=== PATIENT | female | born 2000 | race Caucasian/White ===

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

== ENCOUNTER → 2019-02-23 | Outpatient (CLI) | payer MEDICAID ==
[2019-02-23 15:05] LABS: CHLAM PCR DETECTED (NOT DETECT); GON PCR DETECTED (NOT DETECT)
== END ==
LOC: LAB 13:02
PROVIDERS: ATTEND Nurse Practitioner Acute Care
DX: N98.8 Other complications associated with artificial fertilization (principal)
CPT/HCPCS: 87491; 87591

== ENCOUNTER 2019-03-04 02:12 | Emergency (ER) | payer MEDICAID ==
--- NOTE | 2019-03-04 02:54 | RADIOLOGY REPORT (SQ) ---
EXAM DESCRIPTION: XR KNEE 1-2 VIEWS COMPLETED DATE/TME: 03/04/2019 00:00 CLINICAL HISTORY: 18 years, Female, jumped fence and twisted knee COMPARISON: 03/21/2018 right knee NUMBER OF VIEWS: 2 TECHNIQUE: 2 view right knee LIMITATIONS: None. FINDINGS: Negative for fracture or dislocation. Soft tissues are unremarkable IMPRESSION: Negative exam copyright 2010 [employer]- All Rights Reserved
--- NOTE | 2019-03-04 05:42 | ER Document Report ---
ED Extremity Problem, Lower - General Chief Complaint: Knee Injury Stated Complaint: KNEE PAIN Time Seen by Provider: 03/04/19 05:34 Primary Care Provider: KENN GARCIA NP [Primary Care Provider] - Follow up as needed TRAVEL OUTSIDE OF THE [place] IN LAST 30 DAYS: No - HPI Notes: Patient is a 18-year-old female that presents to the emergency department for chief complaint of right knee pain. Patient states earlier this evening she was running and trying to jump a fence and twisted her right knee. She states she rolled her ankle and the knee twisted. She denied landing directly on her leg. She denied falling completely to the ground as well as head injury or loss of consciousness. She states that she has a pain on the lateral aspect of her right knee that is worse with movement. She denies any joint laxity. She denies any numbness or weakness. She states the pain is mild. She has not taken any medication for pain. Past Medical History: Negative Past Surgical History: Negative Social History: Denies drugs alcohol and tobacco Family History: Reviewed and noncontributory for presenting illness Allergies: Reviewed, see documented allergy list. REVIEW OF SYSTEMS: CONSTITUTIONAL : No fever No chills No diaphoresis No recent illness EENT: No vision changes No congestion No sore throat CARDIOVASCULAR: No chest pain No palpitations RESPIRATORY: No shortness of breath No cough No difficulty breathing GASTROINTESTINAL: No abdominal pain No nausea No vomiting No diarrhea GENITOURINARY: No dysuria No hematuria No difficulty urinating MUSCULOSKELETAL: No back pain leg pain No arm pain SKIN: No rashes No lesions LYMPHATIC: No swollen, enlarged glands. NEUROLOGICAL: No lightheadedness No headache No weakness No paresthesias PSYCHIATRIC: No anxiety No depression PHYSICAL EXAMINATION: Vital signs reviewed, nursing noted reviewed. GENERAL: Well-appearing, well-nourished and in no acute distress. HEAD: Atraumatic, normocephalic. EYES: Eyes appear normal, extraocular movements intact, sclera anicteric, conjunctiva are normal. ENT: nares patent, oropharynx clear without exudates. Moist mucous membranes. NECK: Normal range of motion, supple without lymphadenopathy LUNGS: Breath sounds clear to auscultation bilaterally and equal. No wheezes rales or rhonchi. HEART: Regular rate and rhythm without murmurs ABDOMEN: Soft, nontender, normoactive bowel sounds. No rebound, guarding, or rigidity. No masses appreciated. EXTREMITIES: Normal right knee exam with no focal tenderness, no joint effusion, no joint laxity, no bony deformity and normal range of motion. Normal right ankle exam. Pelvis stable with no hip tenderness bilaterally. Good range of motion, no pitting or edema. NEUROLOGICAL: No focal neurological deficits. Moves all extremities spontaneously Motor and sensory grossly intact on exam. PSYCH: Normal mood, normal affect. SKIN: Warm, Dry, normal turgor, no rashes or lesions noted on exposed skin - Related Data Allergies/Adverse Reactions: No Known Allergies Allergy (Verified 11/06/18 14:35) Past Medical History - Social History Smoking Status: Unknown if Ever Smoked Family History: Reviewed & Not Pertinent Patient has suicidal ideation: No Patient has homicidal ideation: No Renal/ Medical History: Denies: Hx Peritoneal Dialysis Psychiatric Medical History: Reports: Hx Attention Deficit Hyperactivity Disorder, Hx Bipolar Disorder, Hx Depression Past Surgical History: Reports: Hx Oral Surgery - teeth pulled, Other - Nexplanon - Immunizations Immunizations up to date: Yes Hx Diphtheria, Pertussis, Tetanus Vaccination: Yes Physical Exam - Vital signs Vitals: Temp Pulse Resp BP Pulse Ox 98.3 F 94 H 20 90/58 L 99 03/04/19 02:42 03/04/19 02:42 03/04/19 02:42 03/04/19 02:42 03/04/19 02:42 Course - Re-evaluation Re-evalutation: 03/04/19 05:41 Vitals reviewed. Nursing notes reviewed. Patient has no external signs of injury or focal tenderness in the right knee. X-ray was ordered in triage and shows no acute bony injury as well. Patient is able to ambulate without difficulty. Patient counseled on rest, ice, elevation and anti-inflammatory use. She is stable at discharge. Knee X-Ray 03/04/19 00:00 IMPRESSION: Negative exam copyright 2011 [employer]- All Rights Reserved - Vital Signs Vital signs: Temp Pulse Resp BP Pulse Ox 98.3 F 94 H 20 90/58 L 99 03/04/19 02:42 03/04/19 02:42 03/04/19 02:42 03/04/19 02:42 03/04/19 02:42 Discharge - Discharge Clinical Impression: Knee pain, acute Qualifiers: Laterality: right Qualified Code(s): M25.561 - Pain in right knee Condition: Stable Disposition: HOME, SELF-CARE Instructions: Sprained Knee ([facility]), Ice & Elevation ([facility]) Additional Instructions: Please return to the emergency department if you have any worsening, or concern of your symptoms. Please return to the emergency department if you develop chest pain, difficulty breathing, severe abdominal pain, or ongoing vomiting. Please follow-up with your primary care physician in 2-3 days and any other recommended physicians. If prescribed, take all medications as directed. If you have any questions or concerns do not hesitate to return the emergency department for evaluation. Elevate the affected leg to help with swelling. Apply ice to your right knee for 15 minutes at a time 2-3 times a day. Take Tylenol or ibuprofen as needed for pain. Referrals: KENN GARCIA NP [Primary Care Provider] - Follow up in 1 week
[2019-03-04 05:45] VITALS: BP 102/59
== END 2019-03-04 05:45 | disposition home or self-care (01) ==
LOC: ER 02:12
DX: S89.91XA Unspecified injury of right lower leg, initial encounter (principal); M25.561 Pain in right knee; X50.0XXA Overexertion from strenuous movement or load, initial encounter
CPT/HCPCS: 99283

== ENCOUNTER 2019-04-05 21:19 | Emergency (ER) | payer MEDICAID ==
[2019-04-05 21:28] VITALS: BP 105/67
== END 2019-04-05 23:35 | disposition left against medical advice (07) ==
LOC: ER 21:19
DX: Z53.21 Procedure and treatment not carried out due to patient leaving prior to being seen by health care provider (principal)

== ENCOUNTER 2019-04-06 07:09 | Emergency (ER) | payer MEDICAID ==
[2019-04-06] MEDS ORDERED: LIDOCAINE 1% INJ-PF (10 MG/ML) 30 ML SDV IM ONE (08:41)
[2019-04-06] MEDS ORDERED: AZITHROMYCIN 250 MG TABLET PO ONE (08:41)
[2019-04-06] MEDS ORDERED: CEFTRIAXONE INJ 250 MG VIAL IM ONE (08:41)
[2019-04-06 09:23] LABS: APPEARANCE,URINE CLOUDY; BILIRUBIN,URINE NEGATIVE (NEGATIVE); COLOR,URINE YELLOW; GLUCOSE, URINE NEGATIVE (NEGATIVE); KETONES,URINE NEGATIVE (NEGATIVE); LEUKOCYTE ESTERASE,URINE MODERATE (NEGATIVE); NITRITE,URINE NEGATIVE (NEGATIVE); PROTEIN,URINE NEGATIVE (NEGATIVE); URINE SPECIFIC GRAVITY 1.021; UROBILINOGEN,URINE NEGATIVE mg/dL (<2.0)
--- NOTE | 2019-04-06 09:31 | ER Document Report ---
HPI - HPI Time Seen by Provider: 04/06/19 08:16 Pain Level: 3 Notes: Patient is a 18-year-old female presenting to the emergency department with chief complaint of sore throat that started yesterday. Patient also wants to be checked for STDs. She reports that her significant other has a sore throat as well and feels this may be contagious. She denies performing any oral sex. She currently denies any symptoms of STDs, denies any dysuria or abnormal vaginal discharge. - EENT EENT: REPORTS: Sore Throat - URINARY Urinary: REPORTS: Frequency - REPRODUCTIVE Reproductive: DENIES: : Past Medical History - General Information source: Patient - Social History Smoking Status: Never Smoker Chew tobacco use (# tins/day): No Frequency of alcohol use: None Drug Abuse: None Family History: Reviewed & Not Pertinent Patient has suicidal ideation: No Patient has homicidal ideation: No Renal/ Medical History: Denies: Hx Peritoneal Dialysis Psychiatric Medical History: Reports: Hx Attention Deficit Hyperactivity Disorder, Hx Bipolar Disorder, Hx Depression Past Surgical History: Reports: Hx Oral Surgery - teeth pulled, Other - Nexplanon - Immunizations Immunizations up to date: Yes Hx Diphtheria, Pertussis, Tetanus Vaccination: Yes Vertical Provider Document - CONSTITUTIONAL Notes: PHYSICAL EXAMINATION: GENERAL: Well-appearing, well-nourished and in no acute distress. HEAD: Atraumatic, normocephalic. EYES: Pupils equal round extraocular movements intact, conjunctiva are normal. ENT: Nares patent oropharynx nonerythematous, no exudates or tonsillar swelling noted. Uvula midline, no evidence of [employer]., NECK: Normal range of motion LUNGS: No respiratory distress Musculoskeletal: Normal range of motion NEUROLOGICAL: Normal speech, normal gait. PSYCH: Normal mood, normal affect. SKIN: Warm, Dry, normal turgor, no rashes or lesions noted. - INFECTION CONTROL TRAVEL OUTSIDE OF THE [place] IN LAST 30 DAYS: No Course - Re-evaluation Re-evalutation: Rapid strep is negative, chlamydia and gonorrhea testing is pending. Patient was treated with azithromycin and Rocephin prophylactically. Patient stable for discharge at this time. - Vital Signs Vital signs: Temp Pulse Resp BP Pulse Ox 98.2 F 89 16 108/69 98 04/06/19 07:25 04/06/19 07:25 04/06/19 07:25 04/06/19 07:25 04/06/19 07:25 - Laboratory Laboratory results interpreted by me: 04/06/19 08:57 Ur Leukocyte Esterase MODERATE H Discharge - Discharge Clinical Impression: STD exposure Condition: Stable Disposition: HOME, SELF-CARE Additional Instructions: You were treated today with Rocephin and azithromycin for possible STD exposure. Your test results are pending. The urinalysis looked okay today, keep taking the Cipro that was prescribed to you by [facility].
[2019-04-06 09:38] VITALS: BP 96/56
[2019-04-06 10:44] LABS: CHLAM PCR NOT DETECTED (NOT DETECT)
== END 2019-04-06 09:40 | disposition home or self-care (01) ==
LOC: ER 07:09
DX: Z20.2 Contact with and (suspected) exposure to infections with a predominantly sexual mode of transmission (principal); J02.9 Acute pharyngitis, unspecified; R35.0 Frequency of micturition
CPT/HCPCS: 99283; 96372; 87070; 87880; 81001; 87491; 87591; Q0144; J3490; J0696